=== PATIENT | female | born 1980 | race Caucasian/White ===

== ENCOUNTER → 2018-12-29 | Outpatient (CLI) | payer OTHER ==
--- NOTE | 2018-12-29 10:44 | KCIC ---
Right upper quadrant abdominal ultrasound 12/29/2018 INDICATION: Abnormal LFTs COMPARISON STUDY: None FINDINGS: Ultrasound evaluation of the right upper quadrant was performed. Static images are submitted to PACS. Pancreas is somewhat poorly visualized. Visualized portions of the pancreas demonstrate no gross of normality. Visualized portions of the aorta and IVC are grossly unremarkable. The liver is mildly hyperechoic throughout. No focal hepatic lesions are seen. No intrahepatic biliary dilatation is identified. The liver is enlarged measuring 22 cm longitudinally. The gallbladder is unremarkable in appearance without evidence of wall thickening, stones, or sludge. The common bile duct is nondilated at 4 mm. Portal venous flows in the normal direction. The right kidney is normal in appearance measuring 15 cm in length. IMPRESSION: Hepatomegaly and hepatic steatosis. Electronically signed by: Raghu Ledesma MD (12/29/2018 10:41 AM) [id number]
== END | disposition home or self-care (01) ==
LOC: KCIC US 07:55
PROVIDERS: ATTEND Family Medicine
DX: K76.0 Fatty (change of) liver, not elsewhere classified (principal)
CPT/HCPCS: 76705